=== PATIENT | female | born 1975 | race Two or more races ===

== ENCOUNTER 2021-07-06 07:47 | Emergency (ER) | payer OTHER ==
[~2021-07-06] VITALS: Ht 149.9 cm; Wt 57.2 kg
[2021-07-06] MEDS ORDERED: TENORMIN25 MG (08:04)
== END 2021-07-06 14:08 | disposition home or self-care (01) ==
LOC: ER 07:47
DX: K66.8 Other specified disorders of peritoneum (principal); L08.89 Other specified local infections of the skin and subcutaneous tissue; R10.31 Right lower quadrant pain
CPT/HCPCS: 74177; Q9965

== ENCOUNTER 2024-05-02 19:31 | Inpatient (IN) | payer OTHER ==
[~2024-05-02] VITALS: Ht 149.9 cm; Wt 55.8 kg
[~2024-05-02 19:31] MED LIST: TENORMIN25 MG
[2024-05-02] MEDS ORDERED: GUAIFENESIN/DEXTROMETHORPHAN 10ML BLIST.PACK PO STA (20:23)
[2024-05-02] MEDS ORDERED: METHYLPREDNISOLONE SOD SUCC 125 MG VIAL IV STA (20:24)
[2024-05-02] MEDS ORDERED: ALBUTEROL SULFATE 3 ML/2.5 MG AMPUL.NEB IH SCH (20:30)
[2024-05-02] MEDS ORDERED: IPRATROPIUM BROMIDE 0.5 MG/2.5 ML AMPUL.NEB IH SCH (20:30)
[2024-05-02] MEDS ORDERED: METHYLPREDNISOLONE SOD SUCC 125 MG VIAL ONE (20:37)
[2024-05-02] MEDS ORDERED: GUAIFENESIN/DEXTROMETHORPHAN 10ML BLIST.PACK PO ONE (20:38)
[2024-05-02 20:53] LABS: HEMATOCRIT 39.6 % (36.0-45.00); HEMOGLOBIN 13.8 g/dL (12.0-15.00); MEAN CELL VOLUME 88.2 fL (80.00-100.00); MEAN CORPUSCULAR HEMOGLOBIN 30.8 pg (27.00-32.0); MEAN CORPUSCULAR HGB CONC 34.9 g/dl (32.0-36.0); PLATELET COUNT 180 K/uL (150-450); RED BLOOD COUNT 4.49 M/uL (4.00-6.00); RED CELL DISTRIBUTION WIDTH 13.6 % (11.5-14.5)
[2024-05-02 21:18] LABS: ALBUMIN 3.5 gm/dL (3.4-5.0); BILIRUBIN TOTAL 0.61 mg/dL (0.3-1.2); CALCIUM 9.1 mg/dL (8.5-10.1); CREATININE SERUM 0.86 mg/dL (0.55-1.02); GFR 71.04; GLOBULINA 3.4 G/DL (2.4-3.5); POTASSIUM 3.76 mEq/L (3.5-5.1); TOTAL PROTEIN 6.9 gm/dL (6.4-8.2)
[2024-05-02] MEDS ORDERED: CEFTRIAXONE SODIUM 2,000 MG in 0.9 % SODIUM CHLORIDE 100 ML IV SCH (23:07)
[2024-05-02] MEDS ORDERED: MONTELUKAST SODIUM 10 MG TABLET PO SCH (23:08)
[2024-05-02] MEDS ORDERED: FAMOTIDINE/PF 20 MG in 0.9 % SODIUM CHLORIDE 8 ML IV PUSH SCH (23:08)
[2024-05-02] MEDS ORDERED: 0.9 % SODIUM CHLORIDE 1,000 ML IV SCH (23:15)
[2024-05-02] MEDS ORDERED: MAGNESIUM SULFATE 1,000 MG in 0.9 % SODIUM CHLORIDE 50 ML IV ONE (23:15)
[2024-05-02] MEDS ORDERED: ENALAPRILAT DIHYDRATE 1.25 MG/ML VIAL IV PRN (23:15)
[2024-05-02] MEDS ORDERED: ACETAMINOPHEN 500 MG GEL..CAP PO PRN (23:15)
[2024-05-03] MEDS ORDERED: METHYLPREDNISOLONE SOD SUCC 40 MG VIAL ONE (00:40)
[2024-05-03] MEDS ORDERED: MAGNESIUM SULFATE 50% 1,000 MG/2 ML VIAL ONE (00:40)
[2024-05-03] MEDS ORDERED: FAMOTIDINE/PF 20 MG/2 ML VIAL ONE (00:41)
[2024-05-03] MEDS ORDERED: GUAIFENESIN/DEXTROMETHORPHAN 10ML BLIST.PACK PO ONE (00:41)
[2024-05-03] MEDS ORDERED: CEFTRIAXONE SODIUM 2,000 MG VIAL ONE (00:41)
[2024-05-03] MEDS ORDERED: IPRATROPIUM/ALBUTEROL SULFATE 3 ML AMPUL.NEB IH SCH (01:00)
[2024-05-03] MEDS ORDERED: METHYLPREDNISOLONE SOD SUCC 40 MG VIAL IV SCH (01:00)
[2024-05-03 01:07] LABS: INR < 0.93; PARTIAL THROMBOPLASTIN TIME 26.1 SECONDS (22.0-34.0); PROTHROMBIN TIME 10.2 SECONDS (9.0-11.5)
[2024-05-03 01:41] VITALS: BP 135/78
[2024-05-03 01:50] VITALS: BP 135/78; O2SAT 97
[2024-05-03] MEDS ORDERED: GUAIFENESIN/DEXTROMETHORPHAN 10ML BLIST.PACK PO SCH (02:00)
[2024-05-03 02:31] LABS: PH,URINE 5.5 (5.0-8.0); URINE APPEARANCE Clear; URINE BILIRRUBIN Negative (NEGATIVE); URINE BLOOD Small; URINE COLOR Yellow; URINE KETONE Negative (NEGATIVE); URINE LEUKOCYTE Small; URINE NITRATE Negative; URINE PROTEIN Negative (NEGATIVE); URINE UROBILINOGEN 0.2 E.U./dl
[2024-05-03 02:35] LABS: URINE BACTERIA 833.8 uL (0.0-1933); URINE EPITHELIAL CELLS 14.3 uL (0.0-38.8); URINE WBC 77.9 uL (0.0-23.2)
[2024-05-03 02:45] LABS: URINE GLUCOSE 500 MG/DL (NEGATIVE)
[2024-05-03 06:40] VITALS: BP 116/51
[2024-05-03 08:42] VITALS: BP 115/62
[2024-05-03] MEDS ORDERED: AZITHROMYCIN 500 MG in DEXTROSE 5 % IN WATER 250 ML IV SCH (09:00)
[2024-05-03] MEDS ORDERED: BUDESONIDE 0.5 MG/2 ML AMPUL.NEB IH SCH (17:00)
[2024-05-03] MEDS ORDERED: levoFLOXacin IN DEXTROSE 5 % 5 MG/ML PIGGYBAG IV SCH (17:00)
[2024-05-03 17:09] VITALS: BP 133/64
[2024-05-03] MEDS ORDERED: METHYLPREDNISOLONE SOD SUCC 125 MG VIAL IV SCH (18:00)
[2024-05-04] MEDS ORDERED: METHYLPREDNISOLONE SOD SUCC 125 MG VIAL IV SCH (01:00)
[2024-05-04 02:44] VITALS: BP 120/60
[2024-05-04] MEDS ORDERED: FAMOTIDINE/PF 20 MG/2 ML VIAL ONE ×2 (04:09→16:03)
[2024-05-04 06:59] LABS: HEMATOCRIT 35.8 % (36.0-45.00); HEMOGLOBIN 12.7 g/dL (12.0-15.00); MEAN CELL VOLUME 88.9 fL (80.00-100.00); MEAN CORPUSCULAR HEMOGLOBIN 31.5 pg (27.00-32.0); MEAN CORPUSCULAR HGB CONC 35.4 g/dl (32.0-36.0); PLATELET COUNT 157 K/uL (150-450); RED BLOOD COUNT 4.02 M/uL (4.00-6.00)
[2024-05-04 07:08] LABS: ALBUMIN 3.2 gm/dL (3.4-5.0); ALKALINE PHOSPHATASE 58 U/L (50-136); ALT/SGPT 37 U/L (12-78); ANION GAP 9 (10.0-20.0); AST/SGOT 12 U/L (15-37); BILIRUBIN TOTAL 0.35 mg/dL (0.3-1.2); BLOOD UREA NITROGEN 12 mg/dL (7-18); BUN CREA RATIO 21 (7.0-25.0); CALCIUM 8.6 mg/dL (8.5-10.1); CARBON DIOXIDE 25 mEq/L (21-32); CHLORIDE 111 mmol/L (98-107); CREATININE SERUM 0.57 mg/dL (0.55-1.02); GFR 114.19; GLOBULINA 2.9 G/DL (2.4-3.5); GLUCOSE FASTING 150 mg/dL (65-100); OSMOLALITY SERUM 284 MOSM/KG (275-295); PHOSPHOROUS 2.6 mg/dL (2.5-4.9); POTASSIUM 4.07 mEq/L (3.5-5.1); SODIUM 141 mmol/L (136-145); TOTAL PROTEIN 6.1 gm/dL (6.4-8.2)
[2024-05-04 07:17] LABS: C-REACTIVE PROTEIN < 0.29 MG/DL (0.00-0.29)
[2024-05-04 08:59] VITALS: BP 155/80
[2024-05-04] MEDS ORDERED: CETIRIZINE HCL 5 MG/5 ML ML PO SCH (09:00)
[2024-05-04] MEDS ORDERED: METHYLPREDNISOLONE SOD SUCC 40 MG VIAL IV SCH (09:00)
[2024-05-04] MEDS ORDERED: LEVALBUTEROL HCL 0.63 MG/3 ML SOLUTION IH SCH (10:00)
[2024-05-04] MEDS ORDERED: ATENOLOL 25 MG TABLET PO NR (14:00)
[2024-05-04 16:00] VITALS: BP 125/73
[2024-05-05 02:01] VITALS: BP 139/63
[2024-05-05] MEDS ORDERED: FAMOTIDINE/PF 20 MG/2 ML VIAL ONE ×3 (04:04→23:44)
[2024-05-05 08:00] VITALS: BP 137/70
[2024-05-05] MEDS ORDERED: ATENOLOL 25 MG TABLET PO SCH (09:00)
[2024-05-05] MEDS ORDERED: METHYLPREDNISOLONE SOD SUCC 40 MG VIAL IV SCH (17:00)
[2024-05-05 17:45] VITALS: BP 140/64
[2024-05-05 22:32] VITALS: BP 140/61
[2024-05-06 01:36] VITALS: BP 132/55
[2024-05-06 08:36] VITALS: BP 105/70
[2024-05-06] MEDS ORDERED: FAMOTIDINE/PF 20 MG/2 ML VIAL ONE (23:30)
[2024-05-07 00:49] VITALS: BP 147/80
[2024-05-07 09:29] VITALS: BP 135/74; O2SAT 100
== END 2024-05-07 11:16 | disposition home or self-care (01) | DRG 203 ==
LOC: ER 19:32 → MEDI 23:12
PROVIDERS: General Practice; Internal Medicine Infectious Disease; ADMIT Internal Medicine; ATTEND Internal Medicine
PROC: BW24YZZ Computerized Tomography (CT Scan) of Chest and Abdomen using Other Contrast (ICD-10-PCS; principal; 2024-05-02)
DX: J45.901 Unspecified asthma with (acute) exacerbation (principal); I10 Essential (primary) hypertension